=== PATIENT | female | born 1980 | race Caucasian/White ===

== ENCOUNTER 2017-01-15 13:23 | Emergency (ER) | payer OTHER ==
--- NOTE | ~2017-01-15 | CT114 ---
[facility] A Service of [facility] / [facility] RADIOLOGY TEXT RESULTS PATIENT: MERCEDES SUTHERLAND LOCATION: [facility] : 82 UNIT #: [id number] AGE: [address]: Laila Benitez SEX: F ORDER DR: [id number] [facility] [address] [place], [place] [address] [id number] E MR#: [id number] Acc #: [id number] NAME: MERCEDES SUTHERLAND : 1980 SEX: F STUDY DATE/TIME: 01/15/2017 18:25 UNIT: [facility] ROOM: STUDY DESCRIPTION: CT Soft Tissue Neck W Cont Attending Physician: Laila Benitez P.A.-C. Ordering Physician: Jessa Reinoso M.D. Primary Care Physician: [facility]. MEDICAL IMAGING REPORT This report is preliminary unless electronic signature is present EXAM Neck CT, 01/15 INDICATION Throat pain for 2 months with burning in the chest. Pain has worsened over the last 2 weeks. Anterior swelling since of this week. TECHNIQUE Axial images were obtained through the neck following IV contrast administration. Multiplanar reformats were obtained. No comparison. This CT exam was performed with one or more of the following radiation dose reduction techniques: automatic exposure control, adjustment of mA and/or kV according to patient size, and iterative reconstruction. FINDINGS Visualized upper lobes are clear. Thyroid gland is normal. The larynx is normal. The epiglottis is normal. The salivary glands are normal. The floor of the mouth is normal. Tonsillar pillars are symmetric. Prevertebral soft tissues are normal. Visualized paranasal sinuses are clear. IMPRESSION Normal CT of the neck. Dictated by... Rod Rolon Jr., M.D. THIS IS AN ELECTRONICALLY VERIFIED REPORT Rod Rolon Jr., M.D. at 01/16/2017 8:46 PM RLK/cathy [facility] A Service of [facility] / [facility] RADIOLOGY TEXT RESULTS PATIENT: MERCEDES SUTHERLAND LOCATION: [facility] #: [id number] : [birth year] UNIT #: [id number] AGE: [address]: Laila Benitez SEX: F ORDER DR: TD: 01/16/2017 04:18 JOB #: [id number] MEDICAL IMAGING REPORT Page 1 of 1 COPY
[~2017-01-15 13:23] MED LIST: ATENOLOL; BACTRIM DS TABL1 TA1; BACTRIM DS TABL1 TA1 PO; BENZONATATE PO; CIPRO PO; HIBICLENS118 ML; HIBICLENS118 ML TOP; IBUPROFEN800 MG PO; LORTAB 10-5001 EACH; LORTAB 10-5001 EACH PO; LORTAB 7.5-5001 TAB PO; NAPROSYN500 MG PO; ORUDIS75 M1 PO; PEN-VEE K PO; PYRIDIUM PO; ROBITUSSIN A-C S5 ML PO; SEASONIQUE PO; ULTRAM PO; VICODIN 5/500 T1 TAB; VICODIN 5/500 T1 TAB PO; ZOFRAN PO; ZOFRAN8 MG PO
[2017-01-15 17:27] LABS: BASOPHIL# 0.1 X10e3 (0-0.3); EOSINOPHIL# 0.1 X10e3 (0-0.7); EOSINOPHIL% 1.1 % (0.0-7.0); HEMATOCRIT 45.3 % (35.0-45.0); HEMOGLOBIN 14.8 gm/dL (12.0-16.0); LYMPHOCYTE# 1.7 X10e3 (1.0-3.5); MEAN CELL VOLUME 96.1 FL (83-96); MEAN CORPUSCULAR HEMOGLOBIN 31.4 PG (28-34); MEAN CORPUSCULAR HGB CONC 32.7 g/dL (30-36); MEAN PLATELET VOLUME 8.8 FL (6.5-11.5); MONOCYTE# 1.3 X10e3 (0-1.0); MONOCYTE% 16.4 % (3.0-12.0); NEUTROPHIL# 4.6 X10e3 (1.5-7.1); NEUTROPHIL% 59.5 % (40-75); PLATELET COUNT 248 X10e3 (140-420); RED BLOOD COUNT 4.71 X10e (3.90-5.30); RED CELL DISTRIBUTION WIDTH 13.3 % (11.0-15.5); WHITE BLOOD COUNT 7.8 X10e3 (4.0-10.5)
[2017-01-15 17:28] LABS: DIFF IND NO
[2017-01-15 17:50] LABS: CALCIUM SERUM 9.4 mg/dL (8.4-10.2); POTASSIUM 3.7 mmol/L (3.5-5.1)
== END 2017-01-15 19:06 | disposition home or self-care (01) ==
LOC: CED 13:23
PROVIDERS: Physician Assistant
DX: R07.0 Pain in throat (principal); I10 Essential (primary) hypertension; I47.1 Supraventricular tachycardia; Z88.1 Allergy status to other antibiotic agents; Z88.6 Allergy status to analgesic agent
CPT/HCPCS: 36415; 70491; 80048; 84703; 85025; 86308; 99283; Q9967